=== PATIENT | male | born 1960 | race Caucasian/White ===

== ENCOUNTER 2016-08-05 09:23 | Emergency (ER) | payer MEDICAID, MEDICARE ==
[~2016-08-05 09:23] MED LIST: ACET500C PO; CITA40TA4 PO; CITALOPRAM PO; COUM1TAB17 PO; FLEXARIL PO; HYDROCODONE PO; LISI5TAB PO; PERC5TAB6 PO; PERCOCET PO; PRILOSEC PO; SIMV40TA2 PO; TYLE167L PO
--- NOTE | 2016-08-05 10:11 | REP ---
Chest two views HISTORY: Cough Comparison: 05/01/2014 The lungs are clear. The heart is normal in size. The pulmonary vasculature is normal in appearance. The bony structure is intact. IMPRESSION: No acute disease. Signed by Gualberto Levine MD 08/05/2016 10:02 A
--- NOTE | 2016-08-05 10:37 | EDDOCDS ---
Nurse's Notes [facility] Name: Demarco Munoz Age: 55 yrs Sex: Male : 1960 Arrival Date: 08/05/2016 Time: 09:23 Bed PR Private MD: NO PRIMARY PHYSICIAN, . Diagnosis: Influenza due to identified novel influenza A virus;Cough;Fever presenting with conditions classified elsewhere-by history Presentation: 08/05 09:25 Presenting complaint: Patient states: thinks he might have pneumonia or the flu. hs1 Patient reports cough for 3 days. Patient reports not able to eat and just drinking lots of fluids. Patient denies nausea. Adult Sepsis Screening: The patient does not have new or worsening altered mentation. Patient's respiratory rate is less than 22. Systolic blood pressure is greater than 100. Patient has a qSOFA score of 0- Negative Sepsis Screen. Suicide/Homicide risk assessment- the patient denies having any suicidal and/or homicidal ideations and does not present with any other emotional, behavioral or mental health complaints. Status: Patient is not a service director or dependent. Transition of care: patient was not received from another setting of care. 09:25 Acuity: SHERLYN Level 3 hs1 09:25 Method Of Arrival: Walkin/Carried/Asstd hs1 Triage Assessment: 09:29 General: Appears in no apparent distress, Behavior is appropriate for age, cooperative. hs1 Pain: Location: left flank and right flank Pain currently is 3 out of 10 on a pain scale. Aggravated by coughing. HIV screening NA for this visit Offered previously. Respiratory: Reports cough that is pain with cough pain with respiration. Historical: - Allergies: No known drug Allergies; - Home Meds: 1. lisinopril 5 mg Oral tab 1 tab once daily 2. Prilosec 40 mg Oral cpDR 1 cap once daily 3. penicillin V potassium Unknown Oral took them from a friend - PMHx: GERD; Hypertension; - PSHx: Tonsillectomy; Adenoidectomy; Hip Replacement Bilateral; - Social history: Smoking status: Patient states was never smoker of tobacco. No barriers to communication noted, The patient speaks fluent Puerto Rican, Speaks appropriately for age. - Family history: Not pertinent. - : The pt / caregiver states he / she is not on anticoagulants. Home medication list is obtained from the patient. - Exposure Risk Screening:: None identified. Screenin:36 Screening information is obtained from the patient. Fall risk: No risks identified. hs1 Assistance ADL's: requires no assistance with activities of daily living. Abuse/DV Screen: The patient / caregiver reports he/she is: not in a situation that causes fear, pain or injury. Nutritional screening: No deficits noted. Advance Directives: There is no active DNR order. home support is adequate. Assessment: 10:36 General: Appears in no apparent distress, comfortable, Behavior is appropriate for age, hs1 cooperative. Respiratory: Reports pain with cough pain with respiration. Vital Signs: 09:26 BP 151 / 85; Pulse 66; Resp 17; Temp 96.9(T); Pulse Ox 96% on R/A; Weight 94.8 kg (R); lr2 Height 5 ft. 7 in. (170.18 cm) (R); 10:36 BP 157 / 97; Pulse 66; Resp 18; Temp 98.4; Pulse Ox 95% ; Pain 2/10; hs1 09:26 Body Mass Index 32.73 (94.80 kg, 170.18 cm) lr2 Vitals: 09:26 Log In Time: August 05, 2016 at 09:25. lr2 ED Course: 09:25 Patient visited by Mayi Carson. lr2 09:25 NO PRIMARY PHYSICIAN, . is Private Physician. lr2 09:25 Patient moved to Waiting lr2 09:25 Patient moved to Pre RCE lr2 09:27 Triage Initiated hs1 09:30 [facility] dt4 09:30 Cinda Garrett MD is Attending Physician. dt4 09:30 Patient visited by Rosa Salcedo PA-C. dt4 09:30 Patient moved to Triage 2 hs1 09:50 Patient name changed from Demarco\S\[place]\S\Tammy\S\ to Demarco\S\M\S\Tammy. EDMS 09:51 [facility] Payment Agreement was scanned into [employer] and attached to record. lg 09:52 -Influenza A&B Rapid Antigen - Nose Sent. srm 09:53 Patient moved to TR1 srm 10:14 Chest, 2 View (pa\E\lat) Returned. EDMS 10:21 [facility] is Referral Physician. dt4 10:23 Patient moved to [facility] 10:36 The patient / caregiver is instructed regarding the plan of care and ED course. hs1 10:36 No IV's were initiated during this patient's visit. No procedures done that require hs1 assistance. Order Results: Lab Order: -Influenza A&B Rapid Antigen - Nose; SPEC'M 08/05/16 09:50 Test: INFLUENZA A RAPID SCR by ICA; Value: INFLUENZA A RESULTS POSITIVE; Abnormal: Abnormal; Status: F Test: INFLUENZA A RAPID SCR by ICA; Value: Comments:; Status: F Test: INFLUENZA B RAPID SCR by ICA; Value: INFLUENZA B RESULTS NEGATIVE; Status: F Test Note: ; The Influenza test is a direct rapid immunoassay for the qualitative detection of Influenza viral antigen. Cell culture (Viral Culture) testing should be considered to confirm NEGATIVE results and to assist in detecting other viruses that can provide similar clinical symptoms. Please contact the lab within 24 hours ([phone]) if confirmatory testing is desired. Radiology Order: Chest, 2 View (pa\E\lat) Test: Chest, 2 View (pa\E\lat) REASON FOR EXAMINATION: Cough; Chest two views; ; HISTORY: Cough; ; Comparison: 05/01/2014; ; The lungs are clear. The heart is normal in size. The pulmonary vasculature is; normal in appearance. The bony structure is intact.; ; IMPRESSION: No acute disease.; ; ; Signed by; Gualberto Levine MD 08/05/2016 10:02 A; Outcome: 09:59 Discharge ordered by Provider. dt4 10:22 Discharge ordered by Provider. dt4 10:36 Discharge Assessment: Patient awake, alert and oriented x 3. No cognitive and/or hs1 functional deficits noted. Patient verbalized understanding of disposition instructions. patient administered narcotics - no. The following High Risk Discharge criteria are identified: None. Discharged to home ambulatory. Condition: stable. Discharge instructions given to patient, Instructed on discharge instructions, follow up and referral plans. medication usage, Demonstrated understanding of instructions, medications, Pt was receptive of discharge instructions/ teaching. Prescriptions given X 1. No special radiology studies were completed. Property sent home with patient. 10:37 Patient left the ED. hs1 Signatures: Dispatcher MedHo EDNiki Toledo RN RN srm Ganter, LoriLee, Mellisa Tran lg, JARRETT RN hs1 Rosa Salcedo PA-C PA-C dt4 Mayi Carson lr2 MTDD
--- NOTE | 2016-08-05 10:37 | EDDOCDS ---
Physician Documentation [facility] Name: Demarco Munoz Age: 55 yrs Sex: Male : 1960 Arrival Date: 08/05/2016 Time: 09:23 Bed Private MD: NO PRIMARY PHYSICIAN, . Disposition: 08/05/16 10:22 Discharged to Home/Self Care. Impression: Influenza due to identified novel influenza A virus, Cough, Fever presenting with conditions classified elsewhere - by history. - Condition is Stable. - Discharge Instructions: Influenza Adult. - Prescriptions for benzonatate 200 mg Oral Capsule - take 1 capsule by ORAL route 3 times per day As needed DO NOT CHEW; 30 capsule. - Medication Reconciliation, Local Pharmacy Hours form. - Follow up: Emergency Department; When: As needed; Reason: Worsening of conditions. [facility]: [facility]; When: Call to arrange an appointment; Reason: Recheck today's complaints, Continuance of care, To establish care. - Problem is new. - Symptoms are unchanged. - Notes: YOUR CHEST XRAY DID NOT SHOW ANY ABNORMALITIES TODAY. YOUR FLU TEST WAS POSITIVE FOR INFLUENZA A TODAY. INCREASE ORAL FLUIDS WHILE YOU ARE SICK. TYLENOL/MOTRIN DIRECTED, NEEDED FOR FEVER/BODY ACHES. RETURN TO THE ER WITH ANY WORSENING SYMPTOMS. Historical: - Allergies: No known drug Allergies; - Home Meds: 1. lisinopril 5 mg Oral tab 1 tab once daily 2. Prilosec 40 mg Oral cpDR 1 cap once daily 3. penicillin V potassium Unknown Oral took them from a friend - PMHx: GERD; Hypertension; - PSHx: Tonsillectomy; Adenoidectomy; Hip Replacement Bilateral; - Social history: Smoking status: Patient states was never smoker of tobacco. No barriers to communication noted, The patient speaks fluent Finnish, Speaks appropriately for age. - Family history: Not pertinent. - : The pt / caregiver states he / she is not on anticoagulants. Home medication list is obtained from the patient. - Exposure Risk Screening:: None identified. Vital Signs: 08/05 09:26 BP 151 / 85; Pulse 66; Resp 17; Temp 96.9(T); Pulse Ox 96% on R/A; Weight 94.8 kg / 209 lr2 lbs (R); Height 5 ft. 7 in. (170.18 cm) (R); 10:36 BP 157 / 97; Pulse 66; Resp 18; Temp 98.4; Pulse Ox 95% ; Pain 2/10; hs1 09:26 Body Mass Index 32.73 (94.80 kg, 170.18 cm) lr2 MDM: 09:34 Financial registration complete. lg 09:44 Obtain sample by nasopharyngeal swab ordered. dt4 09:45 Chest, 2 View (pa\E\lat) Ordered. EDMS 09:46 -Influenza A&B Rapid Antigen - Nose Ordered. EDMS 09:51 [facility] Payment Agreement was scanned into [employer] and attached to record. lg Signatures: Dispatcher [employer] EDAZ Rin Lerner, Reg Reg Mellisa Betancourt RN RN hs1 Rosa Salcedo, ROLSYN PAJuliethC dt4 The chart was reviewed and I authenticate all verbal orders and agree with the evaluation and treatment provided.Attachments: 09:51 [facility] Payment Agreement lg MTDD
--- NOTE | 2016-08-07 11:38 | EDDOCDS ---
Physician Documentation [facility] Name: Demarco Munoz Age: 55 yrs Sex: Male : 1960 Arrival Date: 08/05/2016 Time: 09:23 Bed Private MD: NO PRIMARY PHYSICIAN, . Disposition: 08/05/16 10:22 Discharged to Home/Self Care. Impression: Influenza due to identified novel influenza A virus, Cough, Fever presenting with conditions classified elsewhere - by history. - Condition is Stable. - Discharge Instructions: Influenza Adult. - Prescriptions for benzonatate 200 mg Oral Capsule - take 1 capsule by ORAL route 3 times per day As needed DO NOT CHEW; 30 capsule. - Medication Reconciliation, Local Pharmacy Hours form. - Follow up: Emergency Department; When: As needed; Reason: Worsening of conditions. Follow [facility]: [facility]; When: Call to arrange an appointment; Reason: Recheck today's complaints, Continuance of care, To establish care. - Problem is new. - Symptoms are unchanged. - Notes: YOUR CHEST XRAY DID NOT SHOW ANY ABNORMALITIES TODAY. YOUR FLU TEST WAS POSITIVE FOR INFLUENZA A TODAY. INCREASE ORAL FLUIDS WHILE YOU ARE SICK. TYLENOL/MOTRIN DIRECTED, NEEDED FOR FEVER/BODY ACHES. RETURN TO THE ER WITH ANY WORSENING SYMPTOMS. Historical: - Allergies: No known drug Allergies; - Home Meds: 1. lisinopril 5 mg Oral tab 1 tab once daily 2. Prilosec 40 mg Oral cpDR 1 cap once daily 3. penicillin V potassium Unknown Oral took them from a friend - PMHx: GERD; Hypertension; - PSHx: Tonsillectomy; Adenoidectomy; Hip Replacement Bilateral; - Social history: Smoking status: Patient states was never smoker of tobacco. No barriers to communication noted, The patient speaks fluent Macedonian, Speaks appropriately for age. - Family history: Not pertinent. - : The pt / caregiver states he / she is not on anticoagulants. Home medication list is obtained from the patient. - Exposure Risk Screening:: None identified. Vital Signs: 08/05 09:26 BP 151 / 85; Pulse 66; Resp 17; Temp 96.9(T); Pulse Ox 96% on R/A; Weight 94.8 kg / 209 lr2 lbs (R); Height 5 ft. 7 in. (170.18 cm) (R); 10:36 BP 157 / 97; Pulse 66; Resp 18; Temp 98.4; Pulse Ox 95% ; Pain 2/10; hs1 09:26 Body Mass Index 32.73 (94.80 kg, 170.18 cm) lr2 MDM: 09:34 Financial registration complete. lg 09:44 Obtain sample by nasopharyngeal swab ordered. dt4 09:45 Chest, 2 View (pa\E\lat) Ordered. EDMS 09:46 -Influenza A&B Rapid Antigen - Nose Ordered. EDMS 09:51 [facility] Payment Agreement was scanned into [employer] and attached to record. lg 15:31 T-Sheet-- Draft Copy was scanned into [employer] and attached to record. gb Signatures: Dispatcher MedHost EDWA Radha Gipson, Reg Reg gb Rin Lerner, Reg Reg lg Mellisa Betancourt, RN RN hs1 Rosa Salcedo, KARSONC PA-C dt4 The chart was reviewed and I authenticate all verbal orders and agree with the evaluation and treatment provided.Attachments: 09:51 [facility] Payment Agreement lg 15:31 T-Sheet-- Draft Copy gb Chart Complete MTDD
--- NOTE | 2016-08-07 11:38 | EDDOCDS ---
Nurse's Notes [facility] Name: Demarco Munoz Age: 55 yrs Sex: Male : 1960 Arrival Date: 08/05/2016 Time: 09:23 Bed PR Private MD: NO PRIMARY PHYSICIAN, . Diagnosis: Influenza due to identified novel influenza A virus;Cough;Fever presenting with conditions classified elsewhere-by history Presentation: 08/05 09:25 Presenting complaint: Patient states: thinks he might have pneumonia or the flu. hs1 Patient reports cough for 3 days. Patient reports not able to eat and just drinking lots of fluids. Patient denies nausea. Adult Sepsis Screening: The patient does not have new or worsening altered mentation. Patient's respiratory rate is less than 22. Systolic blood pressure is greater than 100. Patient has a qSOFA score of 0- Negative Sepsis Screen. Suicide/Homicide risk assessment- the patient denies having any suicidal and/or homicidal ideations and does not present with any other emotional, behavioral or mental health complaints. Status: Patient is not a fire services plumber or dependent. Transition of care: patient was not received from another setting of care. 09:25 Acuity: SHERLYN Level 3 hs1 09:25 Method Of Arrival: Walkin/Carried/Asstd hs1 Triage Assessment: 09:29 General: Appears in no apparent distress, Behavior is appropriate for age, cooperative. hs1 Pain: Location: left flank and right flank Pain currently is 3 out of 10 on a pain scale. Aggravated by coughing. HIV screening NA for this visit Offered previously. Respiratory: Reports cough that is pain with cough pain with respiration. Historical: - Allergies: No known drug Allergies; - Home Meds: 1. lisinopril 5 mg Oral tab 1 tab once daily 2. Prilosec 40 mg Oral cpDR 1 cap once daily 3. penicillin V potassium Unknown Oral took them from a friend - PMHx: GERD; Hypertension; - PSHx: Tonsillectomy; Adenoidectomy; Hip Replacement Bilateral; - Social history: Smoking status: Patient states was never smoker of tobacco. No barriers to communication noted, The patient speaks fluent Burkinan, Speaks appropriately for age. - Family history: Not pertinent. - : The pt / caregiver states he / she is not on anticoagulants. Home medication list is obtained from the patient. - Exposure Risk Screening:: None identified. Screenin:36 Screening information is obtained from the patient. Fall risk: No risks identified. hs1 Assistance ADL's: requires no assistance with activities of daily living. Abuse/DV Screen: The patient / caregiver reports he/she is: not in a situation that causes fear, pain or injury. Nutritional screening: No deficits noted. Advance Directives: There is no active DNR order. home support is adequate. Assessment: 10:36 General: Appears in no apparent distress, comfortable, Behavior is appropriate for age, hs1 cooperative. Respiratory: Reports pain with cough pain with respiration. Vital Signs: 09:26 BP 151 / 85; Pulse 66; Resp 17; Temp 96.9(T); Pulse Ox 96% on R/A; Weight 94.8 kg (R); lr2 Height 5 ft. 7 in. (170.18 cm) (R); 10:36 BP 157 / 97; Pulse 66; Resp 18; Temp 98.4; Pulse Ox 95% ; Pain 2/10; hs1 09:26 Body Mass Index 32.73 (94.80 kg, 170.18 cm) lr2 Vitals: 09:26 Log In Time: August 05, 2016 at 09:25. lr2 ED Course: 09:25 Patient visited by Mayi Carson. lr2 09:25 NO PRIMARY PHYSICIAN, . is Private Physician. lr2 09:25 Patient moved to Waiting lr2 09:25 Patient moved to Pre RCE lr2 09:27 Triage Initiated hs1 09:30 [facility]. dt4 09:30 Cinda Garrett MD is Attending Physician. dt4 09:30 Patient visited by Rosa Salcedo PA-C. dt4 09:30 Patient moved to Triage 2 hs1 09:50 Patient name changed from Demarco\S\[place]\S\Tammy\S\ to Demarco\S\M\S\Tammy. EDMS 09:51 [facility] Payment Agreement was scanned into [employer] and attached to record. lg 09:52 -Influenza A&B Rapid Antigen - Nose Sent. srm 09:53 Patient moved to TR1 srm 10:14 Chest, 2 View (pa\E\lat) Returned. EDMS 10:21 [facility] is Referral Physician. dt4 10:23 Patient moved to srm 10:36 The patient / caregiver is instructed regarding the plan of care and ED course. hs1 10:36 No IV's were initiated during this patient's visit. No procedures done that require hs1 assistance. 15:31 T-Sheet-- Draft Copy was scanned into [employer] and attached to record. gb Order Results: Lab Order: -Influenza A&B Rapid Antigen - Nose; SPEC'M 08/05/16 09:50 Test: INFLUENZA A RAPID SCR by ICA; Value: INFLUENZA A RESULTS POSITIVE; Abnormal: Abnormal; Status: F Test: INFLUENZA A RAPID SCR by ICA; Value: Comments:; Status: F Test: INFLUENZA B RAPID SCR by ICA; Value: INFLUENZA B RESULTS NEGATIVE; Status: F Test Note: ; The Influenza test is a direct rapid immunoassay for the qualitative detection of Influenza viral antigen. Cell culture (Viral Culture) testing should be considered to confirm NEGATIVE results and to assist in detecting other viruses that can provide similar clinical symptoms. Please contact the lab within 24 hours ([phone]) if confirmatory testing is desired. Radiology Order: Chest, 2 View (pa\E\lat) Test: Chest, 2 View (pa\E\lat) REASON FOR EXAMINATION: Cough; Chest two views; ; HISTORY: Cough; ; Comparison: 05/01/2014; ; The lungs are clear. The heart is normal in size. The pulmonary vasculature is; normal in appearance. The bony structure is intact.; ; IMPRESSION: No acute disease.; ; ; Signed by; Gualberto Levine MD 08/05/2016 10:02 A; Outcome: 09:59 Discharge ordered by Provider. dt4 10:22 Discharge ordered by Provider. dt4 10:36 Discharge Assessment: Patient awake, alert and oriented x 3. No cognitive and/or hs1 functional deficits noted. Patient verbalized understanding of disposition instructions. patient administered narcotics - no. The following High Risk Discharge criteria are identified: None. Discharged to home ambulatory. Condition: stable. Discharge instructions given to patient, Instructed on discharge instructions, follow up and referral plans. medication usage, Demonstrated understanding of instructions, medications, Pt was receptive of discharge instructions/ teaching. Prescriptions given X 1. No special radiology studies were completed. Property sent home with patient. 10:37 Patient left the ED. hs1 Signatures: Dispatcher Mismi Niki Acevedo, RN RN srm Radha Gipson, Reg Reg gb Rin Lerner, Reg Reg lg Mellisa Betancourt RN RN hs1 Rosa Salcedo, ROSLYN MCGOWAN dt4 Mayi Carson lr2 Chart Complete MTDD
--- NOTE | 2016-08-07 11:38 | EDDOCDS ---
Physician Documentation [facility] Name: Demarco Munoz Age: 55 yrs Sex: Male : 1960 Arrival Date: 08/05/2016 Time: 09:23 Bed Private MD: NO PRIMARY PHYSICIAN, . Disposition: 08/05/16 10:22 Discharged to Home/Self Care. Impression: Influenza due to identified novel influenza A virus, Cough, Fever presenting with conditions classified elsewhere - by history. - Condition is Stable. - Discharge Instructions: Influenza Adult. - Prescriptions for benzonatate 200 mg Oral Capsule - take 1 capsule by ORAL route 3 times per day As needed DO NOT CHEW; 30 capsule. - Medication Reconciliation, Local Pharmacy Hours form. - Follow up: Emergency Department; When: As needed; Reason: Worsening of conditions. Follow [facility]: [facility]; When: Call to arrange an appointment; Reason: Recheck today's complaints, Continuance of care, To establish care. - Problem is new. - Symptoms are unchanged. - Notes: YOUR CHEST XRAY DID NOT SHOW ANY ABNORMALITIES TODAY. YOUR FLU TEST WAS POSITIVE FOR INFLUENZA A TODAY. INCREASE ORAL FLUIDS WHILE YOU ARE SICK. TYLENOL/MOTRIN DIRECTED, NEEDED FOR FEVER/BODY ACHES. RETURN TO THE ER WITH ANY WORSENING SYMPTOMS. Historical: - Allergies: No known drug Allergies; - Home Meds: 1. lisinopril 5 mg Oral tab 1 tab once daily 2. Prilosec 40 mg Oral cpDR 1 cap once daily 3. penicillin V potassium Unknown Oral took them from a friend - PMHx: GERD; Hypertension; - PSHx: Tonsillectomy; Adenoidectomy; Hip Replacement Bilateral; - Social history: Smoking status: Patient states was never smoker of tobacco. No barriers to communication noted, The patient speaks fluent Persian, Speaks appropriately for age. - Family history: Not pertinent. - : The pt / caregiver states he / she is not on anticoagulants. Home medication list is obtained from the patient. - Exposure Risk Screening:: None identified. Vital Signs: 08/05 09:26 BP 151 / 85; Pulse 66; Resp 17; Temp 96.9(T); Pulse Ox 96% on R/A; Weight 94.8 kg / 209 lr2 lbs (R); Height 5 ft. 7 in. (170.18 cm) (R); 10:36 BP 157 / 97; Pulse 66; Resp 18; Temp 98.4; Pulse Ox 95% ; Pain 2/10; hs1 09:26 Body Mass Index 32.73 (94.80 kg, 170.18 cm) lr2 MDM: 09:34 Financial registration complete. lg 09:44 Obtain sample by nasopharyngeal swab ordered. dt4 09:45 Chest, 2 View (pa\E\lat) Ordered. EDMS 09:46 -Influenza A&B Rapid Antigen - Nose Ordered. EDMS 09:51 [facility] Payment Agreement was scanned into [employer] and attached to record. lg 15:31 T-Sheet-- Draft Copy was scanned into [employer] and attached to record. gb Signatures: Dispatcher MedHost EDNV Radha Gipson, Reg Reg gb Rin Lerner, Reg Reg lg Mellisa Betancourt, RN RN hs1 Rosa Salcdeo, KARSONC PA-C dt4 The chart was reviewed and I authenticate all verbal orders and agree with the evaluation and treatment provided.Attachments: 09:51 [facility] Payment Agreement lg 15:31 T-Sheet-- Draft Copy gb Chart Complete MTDD
== END 2016-08-05 10:37 | disposition home or self-care (01) ==
LOC: M ED 09:23
DX: J10.1 Influenza due to other identified influenza virus with other respiratory manifestations (principal); K21.9 Gastro-esophageal reflux disease without esophagitis; I10 Essential (primary) hypertension; Z96.641 Presence of right artificial hip joint; Z96.642 Presence of left artificial hip joint; Z79.899 Other long term (current) drug therapy

== ENCOUNTER → 2016-10-19 | Outpatient (REF) | payer MEDICARE, MEDICAID ==
[2016-10-19 11:45] LABS: ALBUMIN 3.6 GM/DL (3.2-5.2); ALBUMIN/GLOBULIN RATIO 1.09 (1.00-1.93); ALKALINE PHOSPHATASE 95 U/L (45-117); ALT/SGPT 25 U/L (12-78); ANION GAP 9 MEQ/L (8-16); AST/SGOT 12 U/L (15-37); BILIRUBIN,TOTAL 0.4 MG/DL (0.2-1.0); BLOOD UREA NITROGEN 11 MG/DL (7-18); CALCIUM LEVEL 8.6 MG/DL (8.5-10.1); CARBON DIOXIDE LEVEL 27 MEQ/L (21-32); CHLORIDE LEVEL 106 MEQ/L (98-107); CHOLESTEROL LEVEL 154 MG/DL (<200); CREATININE FOR GFR 0.91 MG/DL (0.70-1.30); GLOMERULAR FILTRATION RATE > 60.0 (>56); GLUCOSE, FASTING 99 MG/DL (70-105); POTASSIUM SERUM 4.5 MEQ/L (3.5-5.1); SODIUM LEVEL 142 MEQ/L (136-145); TOTAL PROTEIN 6.9 GM/DL (6.4-8.2); TRIGLYCERIDES LEVEL 80 MG/DL (<150)
== END ==
LOC: M LABDRAW1 11:10
PROVIDERS: ATTEND Family Medicine
DX: I10 Essential (primary) hypertension (principal); E66.9 Obesity, unspecified; E78.5 Hyperlipidemia, unspecified; Z79.899 Other long term (current) drug therapy

== ENCOUNTER 2016-11-06 08:00 | Emergency (ER) | payer MEDICAID, MEDICARE ==
[~2016-11-06] VITALS: Ht 170.2 cm; Wt 96.2 kg
[2016-11-06 08:06] VITALS: BP 134/77
[2016-11-06] MEDS ORDERED: ATOR1TAB21 PO (08:10)
[2016-11-06] MEDS ORDERED: MAGICMW MT (08:36)
== END 2016-11-06 08:48 | disposition home or self-care (01) ==
LOC: M ED 08:25
DX: J02.9 Acute pharyngitis, unspecified (principal)

== ENCOUNTER → 2017-09-20 | Outpatient (REF) | payer MEDICARE, MEDICAID ==
[2017-09-20 12:48] LABS: HEMATOCRIT 47.6 % (42.0-52.0); MEAN CORPUSCULAR HEMOGLOBIN 29.9 pg (27.0-33.0); MEAN CORPUSCULAR HGB CONC 33.6 g/dl (32.0-36.5); PLATELET COUNT, AUTOMATED 140 10^3/uL (150-450); RED BLOOD COUNT 5.35 10^6/uL (4.30-6.10); RED CELL DISTRIBUTION WIDTH 12.6 % (11.5-14.5); WHITE BLOOD COUNT 10.9 10^3/uL (4.0-10.0)
[2017-09-20 13:04] LABS: THYROID STIMULATING HORMONE 0.949 uIU/ML (0.358-3.740)
== END ==
LOC: M LABDRAW1 11:58
DX: F41.9 Anxiety disorder, unspecified (principal); Z79.899 Other long term (current) drug therapy
CPT/HCPCS: 84443

== ENCOUNTER → 2019-06-24 | Outpatient (REF) | payer MEDICARE, MEDICAID ==
[~2019-06-24] MED LIST changes: +ATOR1TAB21 PO; +MAGICMW MT; +PERC5TAB12 PO; -PERC5TAB6 PO
[2019-06-24 12:43] LABS: HEMOGLOBIN A1c 5.1 %
[2019-06-24 12:46] LABS: CHOLESTEROL RISK RATIO 4.621 (<5)
== END ==
LOC: M LABDRAW1 11:31
PROVIDERS: ATTEND Student in an Organized Health Care Education/Training Program
DX: E78.5 Hyperlipidemia, unspecified (principal); E66.9 Obesity, unspecified; Z79.899 Other long term (current) drug therapy

== ENCOUNTER 2019-07-20 05:56 | Emergency (ER) | payer MEDICAID, MEDICARE ==
[~2019-07-20] VITALS: Ht 170.2 cm; Wt 95.1 kg
[2019-07-20] MEDS ORDERED: HYDR-3713 PO (06:01)
[2019-07-20] MEDS ORDERED: OMEP-218 PO (06:01)
[2019-07-20 06:51] LABS: INFLUENZA A AMPLIFICATION NEGATIVE (NEGATIVE); INFLUENZA B AMPLIFICATION POSITIVE (NEGATIVE)
[2019-07-20] MEDS ORDERED: OSEL75CA PO (07:39)
[2019-07-20] MEDS ORDERED: BENZ200C70 PO (07:39)
[2019-07-20 07:42] VITALS: BP 139/86
--- NOTE | 2019-07-20 11:14 | REP ---
PA LATERAL CHEST: 07/20/2019 COMPARISON: 08/05/2016, 05/01/2014 CLINICAL HISTORY: Cough. FINDINGS: Lungs are adequately inflated. There is some minor lateral pleural thickening left lower lung zone and right mid lung zone. No dense consolidation pleural effusion or parenchymal lung mass. Heart is not enlarged. There are a few cuffed bronchi in the perihilar regions that might reflect reactive airway disease or bronchitis. Aorta and airway grossly intact. The bony thorax without compression deformity but with degenerative changes throughout. Flattening of the diaphragms, increased AP diameter and interstitial changes suggest some underlying COPD. IMPRESSION: 1. COPD with some chronic changes but no infiltrate, effusion, cardiomegaly or edema. Electronically Signed by Moisés Coleman MD 07/20/2019 07:56 P
== END 2019-07-20 07:45 | disposition home or self-care (01) ==
LOC: M ED 05:56
DX: J10.08 Influenza due to other identified influenza virus with other specified pneumonia (principal); J44.9 Chronic obstructive pulmonary disease, unspecified; Z79.891 Long term (current) use of opiate analgesic

== ENCOUNTER → 2021-01-13 | Outpatient (REF) | payer MEDICARE, MEDICAID ==
[~2021-01-13] MED LIST changes: +BENZ200C70 PO; +HYDR-3713 PO; +OMEP-218 PO; +OSEL75CA PO
[2021-01-17 19:07] LABS: CANNABINOID, URINE Positive (Cutoff=20); CARBOXY THC (GC/MS) >300 ng/mL (Cutoff=10); CREATININE, URINE 116.6 mg/dL (20.0-300.0)
== END ==
LOC: M SFHCPLAZ 13:02
PROVIDERS: ATTEND Student in an Organized Health Care Education/Training Program
DX: F11.90 Opioid use, unspecified, uncomplicated (principal); F32.9 Major depressive disorder, single episode, unspecified; Z79.899 Other long term (current) drug therapy
CPT/HCPCS: 80307; G0463

== ENCOUNTER → 2021-04-05 | Outpatient (CLI) | payer MEDICAID, MEDICARE ==
--- NOTE | 2021-04-05 10:47 | PFTRPT ---
Site: [facility], [address] [place] [address], [id number] ID: [id number] Name: CAROLINA POON Visit Date: 04/05/2021 Second ID: [id number] Referring Doctor: Nati Faye D.O. Reviewing Doctor: Rdoney Jones MD Jewelry Making Instructor: Sahil LARA RRT Age: 60 : 1960 Sex: Male Race: Height: 67.00 Inches Weight: 205.00 Lbs BSA: 2.04 Order IDs: [id number] Requested Test(s): <RESP-PFT.PFT B/A> Diagnosis: J45.30 Post Test Comments: The results of this test meet the ATS standards for given four puffs of albuterol for post bronchodilator. Review Status: Not Reviewed Pre-Bronch Post-Bronch Pred Actual %Pred Actual %Chng SPIROMETRY FVC (L) 4.19 4.22 100 4.15 -1 FEV1 (L) 3.15 3.14 99 3.06 -2 FEV1/FVC (%) 75 74 99 74 -1 FEF 25% (L/sec) 7.32 7.03 96 7.50 6 FEF 50% (L/sec) 4.70 3.04 64 2.97 -2 FEF 75% (L/sec) 1.36 0.75 54 0.68 -8 FEF 25-75% (L/sec) 2.57 2.11 82 2.08 -1 FEF Max (L/sec) 8.37 7.23 86 7.72 6 FIVC (L) 4.16 4.26 2 FIF 50% (L/sec) 4.66 6.20 133 6.31 1 FIF Max (L/sec) 6.21 6.31 1 MVV (L/min) 127 135 106 Expiratory Time (sec) 7.39 7.89 6 Back Extrap Vol (L) 0.10 0.10 2 Time To FEFmax (sec) 0.086 0.104 20 LUNG VOLUMES SVC (L) 4.27 4.78 111 IC (L) 3.10 3.99 128 ERV (L) 1.17 0.79 67 TGV (L) 3.30 3.50 106 RV (Pleth) (L) 2.13 2.70 126 TLC (Pleth) (L) 6.40 7.49 116 RV/TLC (Pleth) (%) 33 36 109 DIFFUSION DLCOunc (ml/min/mmHg) 26.60 21.28 80 DL/VA (ml/min/mmHg/L) 4.16 3.09 74 VA (L) 6.40 6.89 107 BHT (sec) 9.79 IVC (L) 4.23 TLC (SB) (L) 7.04 AIRWAYS RESISTANCE Raw (cmH2O/L/s) 1.45 1.00 68 Gaw (L/s/cmH2O) 1.03 1.03 99 sRaw (cmH2O*s) 4.76 3.88 81 sGaw (1/cmH2O*s) 0.20 0.26 130
== END ==
LOC: M CARPUL 10:09
PROVIDERS: ATTEND Student in an Organized Health Care Education/Training Program
DX: J45.30 Mild persistent asthma, uncomplicated (principal)

== ENCOUNTER → 2022-03-01 | Outpatient (CLI) | payer MEDICARE ==
[~2022-03-01] MED LIST changes: -CITA40TA4 PO; +CITA40TA7 PO; +OMEP-173 PO; -OMEP-218 PO
[2022-03-01 11:06] LABS: HEMATOCRIT 46.1 % (42.0-52.0); HEMOGLOBIN 15.4 g/dl (13.5-17.5); MEAN CORPUSCULAR HEMOGLOBIN 30.1 pg (27.0-33.0); MEAN CORPUSCULAR HGB CONC 33.4 g/dl (32.0-36.5); PLATELET COUNT, AUTOMATED 191 10^3/uL (150-450); RED BLOOD COUNT 5.12 10^6/uL (4.30-6.10); WHITE BLOOD COUNT 9.4 10^3/uL (4.0-10.0)
[2022-03-01 11:27] LABS: HEMOGLOBIN A1c 5.5 %
[2022-03-01 12:39] LABS: ALBUMIN 3.5 GM/DL (3.2-5.2); ALT/SGPT 21 U/L (12-78); BILIRUBIN,TOTAL 0.5 MG/DL (0.2-1.0); BLOOD UREA NITROGEN 12 MG/DL (7-18); CALCIUM LEVEL 9.5 MG/DL (8.8-10.2); CARBON DIOXIDE LEVEL 29 MEQ/L (21-32); CHLORIDE LEVEL 106 MEQ/L (98-107); CHOLESTEROL LEVEL 146 MG/DL (<200); CREATININE FOR GFR 0.86 MG/DL (0.70-1.30); GLOMERULAR FILTRATION RATE > 60.0 (>49); GLUCOSE, FASTING 93 MG/DL (70-100); HDL CHOLESTEROL 41 MG/DL (>40); LDL CHOLESTEROL 91 MG/DL (<100); NON-HDL-C 105 MG/DL; POTASSIUM SERUM 4.8 MEQ/L (3.5-5.1); SODIUM LEVEL 138 MEQ/L (136-145); TOTAL PROTEIN 6.8 GM/DL (6.4-8.2); TRIGLYCERIDES LEVEL 72 MG/DL (<150)
== END ==
LOC: M PLALAB 08:54
PROVIDERS: ATTEND Student in an Organized Health Care Education/Training Program
DX: E78.5 Hyperlipidemia, unspecified (principal); I10 Essential (primary) hypertension; Z13.1 Encounter for screening for diabetes mellitus; Z13.29 Encounter for screening for other suspected endocrine disorder; Z79.899 Other long term (current) drug therapy